=== PATIENT | female | born 1960 | race Caucasian/White ===

== ENCOUNTER 2016-04-24 13:07 | Emergency (ER) | payer MEDICAID ==
[~2016-04-24] VITALS: Ht 160 cm; Wt 100.0 kg
[~2016-04-24 13:07] MED LIST: AMIT1TAB79 PO; ATOR40TA16 PO; CELE200C PO; CITA40TA4 PO
[2016-04-24 13:09] VITALS: BP 163/84; TEMP 98; O2SAT 97
--- NOTE | 2016-04-24 14:59 | PD ---
HPI Chief Complaint: Injury Time Seen by Provider: 14:59 Travel History International Travel<30 days: No Contact w/Intl Traveler<30days: No Traveled to known affect area: No History of Present Illness HPI 55-year-old female presents to the emergency Department with complaint of left shoulder injury. She first injured it 3 weeks ago while walking down some wet stairs and slipping and hitting herself on the radial and injuring her left shoulder. She again injured it yesterday when she tried to lift up with [place]. She said she heard a pop yesterday. She reports decreased range of motion secondary to Pain to the affected extremity. Denies paresthesias, loss of sensation to the affected extremity. Reports shooting pains down the left arm with certain movements. Denies fever, chills, nausea, vomiting. Denies chest pain, shortness of breath, abdominal pain. Took one of her daughter's hydrocodone's last night with some relief pain. Has Not taken any medications today. Has not tried any other treatments to alleviate her symptoms. No known allergies. No other modifying factors or associated signs and symptoms. PFSH Past Medical History Heart Rhythm Problems: Yes (JAYLEN) Cardiovascular Problems: No Immunizations Current: Yes ?: Not Menopausal: Yes Social History Alcohol Use: Yes (OCC) Tobacco Use: No Substance Use: No Allergies-Medications (Allergen,Severity, Reaction): Coded Allergies: No Known Allergies (Verified , 04/24/16) Reported Meds & Prescriptions Reported Meds & Active Scripts Active Robaxin (Methocarbamol) 500 Mg Tab 500 Mg PO QID PRN Ibuprofen 800 Mg Tab 800 Mg PO Q6HR PRN Atorvastatin (Atorvastatin Calcium) 40 Mg Tab 40 Mg PO HS Elavil (Amitriptyline HCl) 25 Mg Tab 1 Tab PO DAILY Citalopram (Citalopram Hydrobromide) 40 Mg Tab 40 Mg PO DAILY Reported Meclizine (Meclizine HCl) 25 Mg Tab 25 Mg PO DIRECTED PRN Celebrex (Celecoxib) 200 Mg Cap 200 Mg PO DAILY Review of Systems Except as stated in HPI: all other systems reviewed are Neg Physical Exam Narrative GENERAL: Well-nourished, well-developed female patient, in no acute distress SKIN: Warm and dry. HEAD: Atraumatic. Normocephalic. EYES: Pupils equal and round. No scleral icterus. No injection or drainage. ENT: Mucosa pink and moist. Airway patent. NECK: Supple. Trachea midline. CARDIOVASCULAR: Regular rate and rhythm. No murmur appreciated. RESPIRATORY: No accessory muscle use. Clear to auscultation. Breath sounds equal bilaterally. GASTROINTESTINAL: Abdomen soft, non-tender, nondistended. Positive bowel sounds. No hepato-splenomegaly, or palpable masses. No guarding. MUSCULOSKELETAL: Left shoulder with limited range of motion and approximately 45 abduction; joint stable; shoulders equal; with tenderness on palpation to the anterior aspect; no obvious deformity. Left upper extremity supple and non- tense with 2+ radial pulse and sensory intact and without erythema or edema. No obvious deformities. No clubbing. No cyanosis. No edema. NEUROLOGICAL: Awake and alert. Oriented 3. No obvious cranial nerve deficits. Motor grossly within normal limits. Normal speech. PSYCHIATRIC: Appropriate mood and affect; insight and judgment normal. Data Data Last Documented VS Vital Signs Date Time Temp Pulse Resp B/P Pulse Ox O2 Delivery O2 Flow Rate FiO2 04/24/16 14:59 18 04/24/16 13:09 98.0 84 163/84 97 Room Air Orders Shoulder, Complete (>2vws) (04/24/16 14:59) Ketorolac Inj (Toradol Inj) (04/24/16 15:00) Sling Cradle Arm (04/24/16 ) MDM Medical Decision Making Medical Screen Exam Complete: Yes Emergency Medical Condition: Yes Medical Record Reviewed: Yes Differential Diagnosis Shoulder strain, rotator cuff tear, ligament tear, fracture, dislocation Narrative Course 55-year-old female with left shoulder injury. Left upper extremity supple and non-tense and 2+ radial pulse and sensory intact. Toradol administered in the ER. Left shoulder x-ray ordered. 1624: Left shoulder x-ray concludes no acute findings. Arm sling provided for support. Instructed patient to follow up with orthopedic. Ibuprofen and Robaxin prescribed for home. Patient verbalizes understanding and agreement to treatment plan. Patient is medically cleared and stable for discharge. Discussed reasons to return to the emergency department. Instructed patient to follow up with primary care provider. Patient agrees with treatment plan. The patients vital signs are stable and the patient is stable for outpatient follow- up and treatment. Patient discharged home, stable and in no acute distress. Diagnosis Primary Impression: Sprain of left shoulder Qualified Code: S43.402A - Sprain of left shoulder, unspecified shoulder sprain type, initial encounter Referrals: Orthopaedic Surgeon Primary Care Physician Patient Instructions: General Instructions, Shoulder Sprain (ED) Departure Forms: Tests/Procedures, Work Release Special Instructions: Unable to use left arm for work until cleared by orthopedics. Additional Instructions: Tylenol or ibuprofen as needed and as directed to reduce pain and inflammation Rest, ice, and compress extremity to decrease pain and inflammation Arm sling for support Avoid aggravating activity; increase activity as tolerated Follow-up with primary care provider Follow-up with orthopedics as needed Return to the emergency department immediately with worsening symptoms Med/Other Pt SpecificInfo: Prescription(s) given Scripts Methocarbamol (Robaxin)500 Mg [id number] Mg PO QID PRN (MUSCLE SPASM) #30 TAB Ref 0 Prov:Brittany Torres 04/24/16 Ibuprofen 800 Mg [id number] Mg PO Q6HR PRN (PAIN) #30 TAB Ref 0 Prov:Brittany Torres 04/24/16 Disposition: 01 DISCHARGE HOME Condition: Stable Brittany Torres Apr 24, 2016 14:59
[2016-04-24] MEDS ORDERED: KETOROLAC TROMETHAMINE 60 MG/2 ML (IM) VIAL IM ONE (15:00)
[2016-04-24] MEDS ORDERED: MECL-62 PO (15:07)
--- NOTE | 2016-04-24 16:17 | RADRPT ---
EXAM DATE/TIME: 04/24/2016 15:52 [facility] COMPARISON: No previous studies available for comparison. INDICATIONS : Left shoulder pain after fall down stairs. MEDICAL HISTORY : None. SURGICAL HISTORY : None. ENCOUNTER: Initial ACUITY: 3 weeks PAIN SCORE: 9/10 LOCATION: Left shoulder. FINDINGS: Multiple view examination of the left shoulder demonstrates no evidence of fracture or dislocation. The glenohumeral and acromioclavicular joints are maintained. There is normal range of motion betwee n internal and external rotation. Bony mineralization is normal. CONCLUSION: Negative trauma study. Kei Melendez MD on April 24, 2016 at 16:14 Board Certified Radiologist. This report was verified electronically.
[2016-04-24] MEDS ORDERED: IBUP800T23 PO (16:27)
[2016-04-24] MEDS ORDERED: ROBA500T PO (16:27)
[2016-04-30] MEDS ORDERED: IBUP800T23 PO (10:26)
[2016-05-03] MEDS ORDERED: IBUP800T23 PO (21:23)
[2016-05-09] MEDS ORDERED: CELE200C PO (17:45)
[2016-06-24] MEDS ORDERED: CELE200C PO (16:42)
[2016-07-31] MEDS ORDERED: SULF1TAB23 PO (09:28)
[2016-08-08] MEDS ORDERED: AMIT25TA9 PO (12:47)
[2016-08-15] MEDS ORDERED: ZOFR4TAB3 SL (12:52)
[2016-08-16] MEDS ORDERED: CITA40TA4 PO (09:05)
== END 2016-04-24 16:42 | disposition home or self-care (01) ==
LOC: NEPB 13:07
DX: S43.402A Unspecified sprain of left shoulder joint, initial encounter (principal); W01.0XXA Fall on same level from slipping, tripping and stumbling without subsequent striking against object, initial encounter; W10.9XXA Fall (on) (from) unspecified stairs and steps, initial encounter; Y93.01 Activity, walking, marching and hiking
CPT/HCPCS: 73030; 96372; 99283; J1885

== ENCOUNTER 2017-07-17 12:44 | Emergency (ER) | payer SELFPAY ==
[~2017-07-17] VITALS: Ht 160 cm; Wt 89.0 kg
[~2017-07-17 12:44] MED LIST changes: -AMIT1TAB79 PO; +AMIT25TA9 PO; +IBUP1TAB7 PO; +MECL-62 PO; +SULF1TAB23 PO; +ZOFR4TAB3 SL
[2017-07-17 13:18] VITALS: BP 146/86; PULSE 60; RESP 20; TEMP 98.6; O2SAT 100
[2017-07-17 13:55] LABS: BACTERIA, URINE RARE /hpf; BILIRUBIN, URINE NEG (NEG); BLOOD, URINE NEG (NEG); GLUCOSE,URINE NEG (NEG); HYALINE CAST, URINE 2 /lpf (RARE); KETONE, URINE NEG (NEG); NITRITE,URINE NEG (NEG); SQUAMOUS EPITHELIAL CELL URINE 9 /hpf (0-5); URINE COLOR YELLOW (YELLW/STRAW); URINE LEUKOCYTE ESTERASE LARGE (NEG)
[2017-07-17 15:01] LABS: AUTOMATED NEUTROPHIL # 2.2 TH/MM3 (1.8-7.7); BASOPHIL % 0.8 % (0.0-2.0); EOSINOPHIL # 0.1 TH/MM3 (0-0.4); EOSINOPHIL % 2.3 % (0.0-4.0); HEMATOCRIT 42.4 % (35.0-46.0); HEMOGLOBIN 14.5 GM/DL (11.6-15.3); LYMPH % 41.9 % (9.0-44.0); MEAN CELL VOLUME 88.4 FL (80.0-100.0); MEAN CORPUSCULAR HEMOGLOBIN 30.3 PG (27.0-34.0); MEAN CORPUSCULAR HGB CONC 34.3 % (32.0-36.0); MEAN PLATELET VOLUME 9.2 FL (7.0-11.0); MONOCYTE # 0.4 TH/MM3 (0-0.9); PLATELET COUNT 244 TH/MM3 (150-450); RED BLOOD COUNT 4.79 MIL/MM3 (4.00-5.30); WHITE BLOOD COUNT 4.7 TH/MM3 (4.0-11.0)
[2017-07-17 15:36] LABS: BICARBONATE 31.3 MEQ/L (21.0-32.0); CALCIUM 9.1 MG/DL (8.5-10.1); CREATININE 1.03 MG/DL (0.50-1.00)
--- NOTE | 2017-07-17 15:38 | PD ---
HPI Chief Complaint: Flank/Kidney Pain Time Seen by Provider: 15:01 Travel History International Travel<30 days: No Contact w/Intl Traveler<30days: No Traveled to known affect area: No History of Present Illness HPI This patient complains of left flank pain. Duration is 1 month. She has a sharp stabbing pain in the flank that radiates to the left lower quadrant. At times it does seem to travel down her leg. There is been no injury. No neurologic complaints denies fever or vomiting. Symptom severity is moderate. No alleviating factors. No exacerbating factors. PFSH Past Medical History Medical History: Denies Significant Hx Arthritis: Yes Depression: Yes Heart Rhythm Problems: Yes (JAYLEN) Cardiovascular Problems: No High Cholesterol: Yes Diminished Hearing: No Immunizations Current: Yes Influenza Vaccination: No ?: Not Menopausal: Yes Past Surgical History Cholecystectomy: Yes Social History Alcohol Use: Yes (OCC) Tobacco Use: No Substance Use: No Allergies-Medications (Allergen,Severity, Reaction): Coded Allergies: No Known Allergies (Verified , 07/31/16) Reported Meds & Prescriptions Reported Meds & Active Scripts Active Amitriptyline (Amitriptyline HCl) 25 Mg Tab 25 Mg PO HS Citalopram (Citalopram Hydrobromide) 40 Mg Tab 40 Mg PO DAILY Zofran Odt (Ondansetron Odt) 4 Mg Tab 4 Mg SL Q12HR PRN Sulfamethoxazole-Trimethoprim 800-160 Mg Tab 1 Tab PO BID Celebrex (Celecoxib) 200 Mg Cap 200 Mg PO DAILY Ibuprofen 800 Mg Tab 800 Mg PO Q6HR PRN Atorvastatin (Atorvastatin Calcium) 40 Mg Tab 40 Mg PO HS Reported Meclizine (Meclizine HCl) 25 Mg Tab 25 Mg PO DIRECTED PRN Review of Systems General / Constitutional: No: Fever Eyes: No: Visual changes HENT: No: Headaches Cardiovascular: No: Chest Pain or Discomfort Respiratory: No: Shortness of Breath Gastrointestinal: No: Abdominal Pain Genitourinary: Positive: Flank Pain, No: Dysuria Musculoskeletal: No: Pain Skin: No Rash Neurologic: No: Weakness Psychiatric: No: Depression Endocrine: No: Polydipsia Hematologic/Lymphatic: No: Easy Bruising Physical Exam Narrative GENERAL: Well-nourished, well-developed patient in no apparent distress. SKIN: Focused skin assessment reveals no rash and nodules. Skin is Warm and dry. HEAD: Atraumatic. Normocephalic. EYES: Pupils equal and round. No scleral icterus. No injection or drainage. ENT: No nasal bleeding or discharge. Mucous membranes pink and moist. NECK: Trachea midline. No JVD. CARDIOVASCULAR: Regular rate and rhythm. No murmur appreciated. RESPIRATORY: No accessory muscle use. Clear to auscultation. Breath sounds equal bilaterally. GASTROINTESTINAL: Abdomen soft, non-tender, nondistended. Hepatic and splenic margins not palpable. MUSCULOSKELETAL: No obvious deformities. No clubbing. No cyanosis. No edema. NEUROLOGICAL: Awake and alert. No obvious cranial nerve deficits. Motor grossly within normal limits. Normal speech. PSYCHIATRIC: Appropriate mood and affect; insight and judgment normal. Data Data Last Documented VS Vital Signs Date Time Temp Pulse Resp B/P (MAP) Pulse Ox O2 Delivery O2 Flow Rate FiO2 07/17/17 13:18 98.6 60 20 146/86 (106) 100 Orders Orders Urinalysis - C+S If Indicated (07/17/17 13:20) Complete Blood Count With Diff (07/17/17 13:20) Basic Metabolic Panel (Bmp) (07/17/17 13:20) Urine Culture (07/17/17 13:34) Ct Abd/Pel W/O Iv Contrast (07/17/17 ) Ed Discharge Order (07/17/17 16:53) Labs Laboratory Tests Test 07/17/17 13:34 07/17/17 14:06 Urine Color YELLOW Urine Turbidity HAZY Urine pH 5.0 Urine Specific [place] 1.009 Urine Protein NEG mg/dL Urine Glucose (UA) NEG mg/dL Urine Ketones NEG mg/dL Urine Occult Blood NEG Urine Nitrite NEG Urine Bilirubin NEG Urine Urobilinogen LESS THAN 2.0 MG/DL Urine Leukocyte Esterase LARGE Urine RBC 2 /hpf Urine WBC 10 /hpf Urine Squamous Epithelial Cells 9 /hpf Urine Bacteria RARE /hpf Urine Hyaline Casts 2 /lpf Microscopic Urinalysis Comment CULTURE INDICATED White Blood Count 4.7 TH/MM3 Red Blood Count 4.79 MIL/MM3 Hemoglobin 14.5 GM/DL Hematocrit 42.4 % Mean Corpuscular Volume 88.4 FL Mean Corpuscular Hemoglobin 30.3 PG Mean Corpuscular Hemoglobin Concent 34.3 % Red Cell Distribution Width 13.0 % Platelet Count 244 TH/MM3 Mean Platelet Volume 9.2 FL Neutrophils (%) (Auto) 47.0 % Lymphocytes (%) (Auto) 41.9 % Monocytes (%) (Auto) 8.0 % Eosinophils (%) (Auto) 2.3 % Basophils (%) (Auto) 0.8 % Neutrophils # (Auto) 2.2 TH/MM3 Lymphocytes # (Auto) 2.0 TH/MM3 Monocytes # (Auto) 0.4 TH/MM3 Eosinophils # (Auto) 0.1 TH/MM3 Basophils # (Auto) 0.0 TH/MM3 CBC Comment DIFF FINAL Differential Comment Blood Urea Nitrogen 13 MG/DL Creatinine 1.03 MG/DL Random Glucose 88 MG/DL Calcium Level 9.1 MG/DL Sodium Level 139 MEQ/L Potassium Level 5.0 MEQ/L Chloride Level 103 MEQ/L Carbon Dioxide Level 31.3 MEQ/L Anion Gap 5 MEQ/L Estimat Glomerular Filtration Rate 56 ML/MIN MDM Medical Decision Making Medical Screen Exam Complete: Yes Emergency Medical Condition: Yes Medical Record Reviewed: Yes Differential Diagnosis Kidney stone, sciatica, lumbar strain Narrative Course I have reviewed the patient's electronic medical record. Labs are sent Urinalysis will be cultured but not overly suspicious for infection with 9 epithelial cells and [address] of abdomen and pelvis is negative Labs are normal Symptoms have been going on for 1 month. I think she has sciatica. She is neurologically intact. Recommend primary care follow-up Diagnosis Primary Impression: Left flank pain, chronic Additional Instructions: The patient was advised to follow up with their physician and return if they worsen. Med/Other Pt SpecificInfo: Other Disposition: 01 DISCHARGE HOME Condition: Stable Yung Mcknight MD July 17, 2017 15:38
--- NOTE | 2017-07-17 16:20 | RADRPT ---
EXAM DATE/TIME: 07/17/2017 15:32 This report includes an Addendum and supersedes previous reports for this exam. [facility] COMPARISON: CT ABDOMEN & PELVIS W/O CONTRAST, April 12, 2015, 19:14. INDICATIONS : Left flank pain ORAL CONTRAST: No oral contrast ingested. RADIATION DOSE: 20.19 CTDIvol (mGy) ; Patient body habitus MEDICAL HISTORY : Cardiovascular disease. SURGICAL HISTORY : None. ENCOUNTER: Initial ACUITY: 1 day PAIN SCALE: 5/10 LOCATION: Left flank TECHNIQUE: Volumetric scanning of the abdomen and pelvis was performed. Using automated exposure control and ad justment of the mA and/or kV according to patient size, radiation dose was kept as low as reasonably achievable to obtain optimal diagnostic quality images. DICOM format image data is available electro nically for review and comparison. FINDINGS: LOWER LUNGS: The visualized lower lungs are clear. Small hiatal hernia. LIVER: Homogeneous density without lesion. There is no dilation of the biliary tree. Patient is status post cholecystectomy. SPLEEN: Normal size without lesion. PANCREAS: Within normal limits. KIDNEYS: Normal in size and shape. There is no mass, stone, or hydronephrosis. ADRENAL GLANDS: Within normal limits. VASCULAR: There is no aortic aneurysm. BOWEL/MESENTERY: The stomach, small bowel, and colon demonstrate no acute abnormality. There is no free intraperitone al air or fluid. Mild diverticular disease of the descending and sigmoid colon without diverticulitis . The appendix is identified and is radiographically normal. ABDOMINAL WALL: Within normal limits. RETROPERITONEUM: There is no lymphadenopathy. BLADDER: No wall thickening or mass. REPRODUCTIVE: Within normal limits. INGUINAL: There is no lymphadenopathy or hernia. MUSCULOSKELETAL: Within normal limits for patient age. CONCLUSION: 1. Small hiatal hernia. Minimal diverticular disease of the descending and sigmoid colon without dive rticulitis. 2. Otherwise, nothing acute. Specifically, no left renal or ureteral calculi to explain current clini benito symptoms. Mansoor Francis MD on July 17, 2017 at 16:01 Board Certified Radiologist. This report was verified electronically. ADDENDUM: Please note, patient is status post cholecystectomy. Mansoor Francis MD on July 17, 2017 at 16:20 Board Certified Radiologist. This report was verified electronically.
== END 2017-07-17 17:04 | disposition home or self-care (01) ==
LOC: NEPD 12:44
DX: R10.32 Left lower quadrant pain (principal); G89.29 Other chronic pain; K44.9 Diaphragmatic hernia without obstruction or gangrene; M19.90 Unspecified osteoarthritis, unspecified site; F32.9 Major depressive disorder, single episode, unspecified; E78.00 Pure hypercholesterolemia, unspecified; Z79.899 Other long term (current) drug therapy
CPT/HCPCS: 74176; 80048; 81001; 85025; 87086; 99284